=== PATIENT | female | born 1965 | race Caucasian/White ===

== ENCOUNTER 2016-12-25 07:48 | Day surgery (SDC) | payer OTHER ==
[2016-12-22 09:09] LABS: BASOPHILS 0.5 %; BASOPHILS ABSOLUTE 0.04 10/3/uL (0.0-0.16); EOSINOPHILS 2.4 %; EOSINOPHILS ABSOLUTE 0.19 10/3/uL (0.0-0.53); HEMATOCRIT 38.1 % (36.0-48.0); HEMOGLOBIN 12.8 g/dL (12.0-16.0); IMMATURE GRANULOCYTES 0.1 %; IMMATURE GRANULOCYTES ABSOLUTE 0.01 10/3/uL (0.0-0.11); LYMPHOCYTES 29.4 %; LYMPHOCYTES ABSOLUTE 2.31 10/3/uL (0.67-4.30); MEAN CORPUS HGB CONC 33.6 g/dL (32.0-36.0); MEAN CORPUSCULAR HEMOGLOB 32.4 pg (26.0-34.0); MEAN CORPUSCULAR VOLUME 96.5 fL (80-100); MEAN PLATELET VOLUME 9.6 fL (9.2-13.0); MONOCYTES 7.6 %; PLATELET COUNT 376 10/3/uL (150-400); RBC DISTRIBUTION WIDTH 13.5 % (12.0-16.0); RED CELL COUNT 3.95 10/6/uL (4.0-5.6); WHITE BLOOD CELLS 7.9 10/3/uL (4.5-10.5)
[2016-12-22 09:10] LABS: MANUAL DIFF NO %
[2016-12-22 09:20] LABS: BUN (BLOOD UREA NITROGEN) 18 MG/DL (6-23); CALCIUM, SERUM 9.5 MG/DL (8.5-10.4); CHLORIDE, SERUM 104 MMOL/L (96-112); CO2 (CARBON DIOXIDE) 31 MMOL/L (24-34); CREATININE 0.88 MG/DL (0.55-1.02); GFR AFRICAN AMERICAN 88 ML/MIN (>=60); GFR NON AFRICAN AMERICAN 76 ML/MIN (>=60); GLUCOSE, SERUM 101 MG/DL (60-99); SODIUM, SERUM 142 MMOL/L (135-148)
[2016-12-22 09:35] LABS: PFA (COL/EPI) 83 SEC (72-180)
[2016-12-22 09:44] LABS: INTERNATIONAL NORMAL RATI 0.9 UNITS (-); PARTIAL THROMBO TIME 28.7 SEC (22.5-37.2); PROTIME (NOT ORD) 12.5 SEC (12.0-14.5)
--- NOTE | ~2016-12-25 | OP ---
Record Of Operation [facility] [address] [place]. [address] NAME: VALENTIN MENDOZA : 63 STATUS : [place] [facility] [place] PAT#: [id number] AGE: 51 ADM/REG DATE : 12/25/16 MR#: [id number] REPORT SERV DATE: 12/26/16 DICTATED BY: KAYLIN COLIN DATE: 12/26/16 REPORT STATUS : Draft TRANSCRIBED BY: MILES DATE: 12/26/16 DATE OF PROCEDURE: 12/25/2016 PREOPERATIVE DIAGNOSIS: Deformity post implant based reconstruction. POSTOPERATIVE DIAGNOSIS: Deformity post implant based reconstruction. PROCEDURE: Bilateral fat grafting for deformity. INDICATIONS AND FINDINGS OF THE PROCEDURE: This 51-year-old female is status post bilateral implant based reconstruction. She now has several deformities, both cicatricial and soft tissue envelope fat layer produced. She is appropriate for the above-described operative intervention. DETAILS OF THE PROCEDURE: The patient was brought to the operating room. After adequate sedation was achieved, she was prepped and draped in the usual sterile fashion for the above described procedure. The abdomen was then infiltrated with about 350 mL of wetting solution through 2 stab incisions. 350 mL of fatty aspirate was then removed through a Revolve apparatus. This was treated appropriately and then returned to 3 and 10 mL syringes. Using a topographical map placed before surgery, a 170 mL of fat was then transferred into the left breast envelope and 150 into the right. Particulars of the fat transfer were rogotomies performed with both a 14-gauge needle and a [place] cannula at the areas of the cicatrix. Bucket-handle cannula was then used for the majority of the fat grafting. Centrally, aspiration of the sternal fat was carried out to improve the relationship of the newly reconstructed breast to each other. She was then cleansed with peroxide. A light dressing was placed and she was remanded to the recovery room in stable condition. All sponge and needle counts were correct. KRISTY/MILES Kaylin Colin M.D. / [id number] CC: Kaylin Christine Colin
[~2016-12-25 07:48] MED LIST: ACET500CAP PO; AMIT25 PO; AT25 PO; K500 PO; PERCOCET1 TA2 PO; PRAVACHOL40 MG PO; PROTONIX PO; TOPXL100 PO; ZESTORETIC PO
[2016-12-25 08:47] LABS: ALBUMIN 3.8 G/DL (3.5-5.0); SGPT(ALT) 24 U/L (5-65); TOTAL PROTEIN 7.8 G/DL (6.0-8.5)
[2016-12-25 08:50] LABS: ALKALINE PHOSPHATASE 113 U/L (45-117); TOTAL BILIRUBIN 0.8 MG/DL (0-1.2)
[2016-12-25 08:51] LABS: DIRECT BILIRUBIN < 0.1 MG/DL (0.0-0.4); INDIRECT BILIRUBIN(NOT ORDER) 0.7 MG/DL (0.1-0.9); SGOT(AST) 35 U/L (5-40)
== END 2016-12-25 23:59 | disposition home or self-care (01) ==
LOC: SDC 07:48
PROVIDERS: Surgery Surgery of the Hand
PROC: 0HRV37Z Replacement of Bilateral Breast with Autologous Tissue Substitute, Percutaneous Approach (ICD-10-PCS; 2016-12-25)
PROC: 0HUV37Z Supplement Bilateral Breast with Autologous Tissue Substitute, Percutaneous Approach (ICD-10-PCS; principal; 2016-12-25 08:45)
DX: N65.0 Deformity of reconstructed breast (principal); I10 Essential (primary) hypertension; E78.00 Pure hypercholesterolemia, unspecified; E78.5 Hyperlipidemia, unspecified; E66.9 Obesity, unspecified; K21.9 Gastro-esophageal reflux disease without esophagitis; Z85.3 Personal history of malignant neoplasm of breast; Z98.82 Breast implant status
CPT/HCPCS: 80048; 80076; 85025; 85576; 85610; 85730; 93005; C1769; J0690; J2250; J2270; J2405; J3010